=== PATIENT | female | born 1965 | race Caucasian/White ===

== ENCOUNTER 2020-10-18 11:35 | Emergency (ER) | payer BC | END 2020-10-18 11:52 | disposition home or self-care (01) | LOC: JVIRT 11:35 | DX: Z03.818 Encounter for observation for suspected exposure to other biological agents ruled out (principal) | CPT/HCPCS: C9803; Q3014-GT; U0003 ==

== ENCOUNTER 2020-10-25 13:36 | Emergency (ER) | payer BC | END 2020-10-25 14:42 | disposition home or self-care (01) | LOC: JVIRT 13:36 | DX: Z11.59 Encounter for screening for other viral diseases (principal) | CPT/HCPCS: C9803; Q3014-GT; U0003 ==